=== PATIENT | female | born 1995 | race Caucasian/White ===

== ENCOUNTER 2018-07-13 22:29 | Emergency (ER) | payer MEDICAID ==
[2018-07-13 22:50] VITALS: BP 124/86; PULSE 86; RESP 18; TEMP 98.7
--- NOTE | 2018-07-13 22:53 | ED ---
ENT HPI - General Chief complaint: ENT Stated complaint: mouth pain Time Seen by Provider: 07/13/18 22:39 Source: patient, RN notes reviewed Mode of arrival: ambulatory Limitations: no limitations - History of Present Illness Initial comments: This is a 23-year-old female who presents to the emergency department with chief complaint of mouth pain. Patient states that last Friday she developed canker sores on her bottom inner lip. She states that they have spread to both gumlines, cheeks, under her tongue and at the back of her throat. She states that she has pain with swallowing and the only thing that that relieves the pain is drinking tea. She states that she's been performing saltwater gargles daily. She denies any fevers or chills, chest pain or shortness of breath, abdominal pain, nausea or vomiting, cough or runny nose. - Related Data Allergies Allergy/AdvReac Type Severity Reaction Status Date / Time No Known Allergies Allergy Verified 07/13/18 22:45 Review of Systems ROS Statement: Those systems with pertinent positive or pertinent negative responses have been documented in the HPI. ROS Other: All systems not noted in ROS Statement are negative. Past Medical History Past Medical History: No Reported History History of Any Multi-Drug Resistant Organisms: None Reported Past Surgical History: No Surgical Hx Reported Smoking Status: Never smoker Past Alcohol Use History: Occasional Past Drug Use History: None Reported General Exam - General Exam Comments Initial Comments: General: Awake and alert, well-developed; in no apparent distress. HEENT: Head atraumatic, normocephalic. Pupils are equal, round and reactive to light. Extraocular movements intact. Oropharynx moist with mild erythema. Vesicular and white ulcer-like lesions upper and lower gumlines, inferior surface of tongue, bilateral cheeks and posterior oropharynx. No tonsillar enlargement or exudates. Neck: Supple. Normal ROM. Cardiovascular: Regular rate and rhythm. No murmurs, rubs or gallops. Chest symmetrical. Respiratory: Lungs clear to auscultation bilaterally. No wheezes, rales or rhonchi. Normal respiratory effort with no use of accessory muscles. Musculoskeletal: Normal ROM, no tenderness bilateral upper and lower extremities. Ambulating normally. Skin: Halma, warm and dry without rashes or lesions. Neurological: Alert and oriented x3. CN II-XII grossly intact. Speech is fluent and answers are appropriate. No focal neuro deficits. Psychiatric: Normal mood and affect. No overt signs of depression or anxiety noted. Limitations: no limitations Course Vital Signs 07/13/18 22:39 Temperature 98.7 F Pulse Rate 86 Respiratory 18 Rate Blood Pressure 124/86 O2 Sat by Pulse 100 Oximetry Medical Decision Making - Medical Decision Making This is a 23-year-old female who presents to the emergency department with chief complaint of mouth pain. Patient reports oral lesions that have been present since last Friday. On physical examination, patient has diffuse oral vesicular and ulcer-like lesions. I educated patient that these are likely viral in nature and are usually caused by the herpes virus. Patient denies any fevers. Her vital signs are stable and she is in acute distress. She will be discharged home with a prescription for magic mouthwash to be used as needed for pain. She is in agreement and voices understanding. All questions answered. Disposition Clinical Impression: Gingivostomatitis Disposition: HOME SELF-CARE Condition: Good Instructions: Gingivostomatitis (ED) Additional Instructions: Please take medications as prescribed. Please follow up with primary care provider within 1-2 days. Return to emergency department if symptoms should worsen or any concerns arise. Is patient prescribed a controlled substance at d/c from ED?: No Referrals: Jens Pizano MD [Primary Care Provider] - 1-2 days Time of Disposition: 22:53
== END 2018-07-13 23:03 | disposition home or self-care (01) ==
LOC: EC 22:29
DX: K05.10 Chronic gingivitis, plaque induced (principal)
CPT/HCPCS: 99282

== ENCOUNTER 2018-08-13 20:44 | Emergency (ER) | payer MEDICAID ==
--- NOTE | 2018-08-13 21:45 | ED ---
General Adult HPI - General Chief complaint: Extremity Problem,Nontraumatic Stated complaint: swollen ankles/skin problems Source: patient, family Limitations: no limitations - History of Present Illness Initial comments: Dictation was produced using [employer] dictation software. please excuse any grammatical, word or spelling errors. Chief Complaint: 32-year-old female no significant past medical history presents with bilateral extremity swelling and bilateral lower extremity rash. History of Present Illness: 23-year-old female presents with bilateral lower extremity painful rash. Patient states that her symptoms have been ongoing just today. She tried to schedule point with her primary care physician however was unavailable. Patient denies any medical problems. She only has a NuvaRing. No daily medications. Patient states that she's had several weeks of lower extremity swelling. This morning she woke up with some tender red areas over the anterior tibial area. Patient denies any other complaints at this time. Denies any recent travel. The ROS documented in this emergency department record has been reviewed and confirmed by me. Those systems with pertinent positive or negative responses have been documented in the HPI. All other systems are other negative and/or noncontributory. - Related Data Home Medications Medication Instructions Recorded Confirmed Ascorbic Acid [Vitamin C] 1,000 mg PO DAILY 08/13/18 08/13/18 Etonogestrel/Ethinyl Estradiol 1 unit VAGINAL Q21D 08/13/18 08/13/18 [Nuvaring Vaginal Ring] Allergies Allergy/AdvReac Type Severity Reaction Status Date / Time No Known Allergies Allergy Verified 08/13/18 21:28 Review of Systems ROS Statement: Those systems with pertinent positive or pertinent negative responses have been documented in the HPI. ROS Other: All systems not noted in ROS Statement are negative. Past Medical History Past Medical History: No Reported History History of Any Multi-Drug Resistant Organisms: None Reported Past Surgical History: No Surgical Hx Reported Past Psychological History: No Psychological Hx Reported Smoking Status: Never smoker Past Alcohol Use History: Occasional Past Drug Use History: None Reported General Exam - General Exam Comments Initial Comments: PHYSICAL EXAM: General Impression: Alert and oriented x3, not in acute distress HEENT: Normocephalic atraumatic, extra-ocular movements intact, pupils equal and reactive to light bilaterally, mucous membranes moist. Cardiovascular: Heart regular rate and rhythm, S1&S2 audible, no murmurs, rubs or gallops Chest: Lungs clear to auscultation bilaterally, no rhonchi, no wheeze, no rales Abdomen: Bowel sounds present, abdomen soft, non-tender, non-distended, no organomegaly Musculoskeletal: Pulses present and equal in all extremities, no peripheral edema Motor: Power 5/5 bilaterally, no focal deficits noted Neurological: CN II-XII grossly intact, no focal motor or sensory deficits noted Skin: Slightly erythematous 2 x 2 centimeter rashes over the anterior tibia with slight tenderness to palpation bilaterally. Lesions are slightly indurated. Psych: Normal affect and mood Limitations: no limitations Course Vital Signs 08/13/18 21:03 Temperature 98.0 F Pulse Rate 94 Respiratory 16 Rate Blood Pressure 130/72 O2 Sat by Pulse 100 Oximetry Medical Decision Making - Medical Decision Making ED course: 23-year-old feel presents with slightly tender erythematous rash to the bilateral anterior tib. Vital signs upon arrival are within acceptable limits. Clinical presentation is suspicious for erythema nodosum. Patient has no other complaints at this time. Laboratory evaluation obtained. CBC unremarkable. Comp wrens metabolic panel is negative. Urinalysis does show 19 white blood cells however 6 squamous cells. Patient is not complaining of any urinary symptoms at this time. No indication for antibiotics at this time. Patient urine is sent out for culture. Two-view chest x-ray shows no acute processes. Presentation is suspicious for erythema nodosum. At this time there is no clear cause of patient's symptoms. Patient has no complaints and labs and basic imaging does not show any findings. Patient told to follow-up with her primary care physician upon discharge. She is told to call back in 2-3 days to follow-up with urine culture and for the need of antibiotics. - Lab Data Result diagrams: 08/13/18 22:20 08/13/18 22:20 Lab Results 08/13/18 08/13/18 08/13/18 Range/Units 22:10 22:10 22:20 WBC (3.8-10.6) k/uL RBC (3.80-5.40) m/uL Hgb (11.4-16.0) gm/dL Hct (34.0-46.0) % MCV (80.0-100.0) fL MCH (25.0-35.0) pg MCHC (31.0-37.0) g/dL RDW (11.5-15.5) % Plt Count (150-450) k/uL Neutrophils % % Lymphocytes % % Monocytes % % Eosinophils % % Basophils % % Neutrophils # (1.3-7.7) k/uL Lymphocytes # (1.0-4.8) k/uL Monocytes # (0-1.0) k/uL Eosinophils # (0-0.7) k/uL Basophils # (0-0.2) k/uL Sodium 140 (137-145) mmol/L Potassium 4.0 (3.5-5.1) mmol/L Chloride 104 (98-107) mmol/L Carbon Dioxide 25 (22-30) mmol/L Anion Gap 11 mmol/L BUN 13 (7-17) mg/dL Creatinine 0.73 (0.52-1.04) mg/dL Est GFR (CKD-EPI)AfAm >90 (>60 ml/min/1.73 sqM) Est GFR (CKD-EPI)NonAf >90 (>60 ml/min/1.73 sqM) Glucose 87 (74-99) mg/dL Calcium 9.4 (8.4-10.2) mg/dL Total Bilirubin 0.3 (0.2-1.3) mg/dL AST 25 (14-36) U/L ALT 18 (9-52) U/L Alkaline Phosphatase 71 (38-126) U/L Total Protein 8.0 (6.3-8.2) g/dL Albumin 4.3 (3.5-5.0) g/dL Urine Color Yellow Urine Appearance Cloudy H (Clear) Urine pH 8.0 (5.0-8.0) Ur Specific Nelson 1.017 (1.001-1.035) Urine Protein Trace H (Negative) Urine Glucose (UA) Negative (Negative) Urine Ketones Negative (Negative) Urine Blood Negative (Negative) Urine Nitrite Negative (Negative) Urine Bilirubin Negative (Negative) Urine Urobilinogen <2.0 (<2.0) mg/dL Ur Leukocyte Esterase Small H (Negative) Urine WBC 19 H (0-5) /hpf Ur Squamous Epith Cells 6 H (0-4) /hpf Urine Mucus Rare H (None) /hpf Urine HCG, Qual Not Detected (Not Detectd) 08/13/18 Range/Units 22:20 WBC 6.1 (3.8-10.6) k/uL RBC 4.48 (3.80-5.40) m/uL Hgb 14.0 (11.4-16.0) gm/dL Hct 41.6 (34.0-46.0) % MCV 92.7 (80.0-100.0) fL MCH 31.2 (25.0-35.0) pg MCHC 33.7 (31.0-37.0) g/dL RDW 12.2 (11.5-15.5) % Plt Count 305 (150-450) k/uL Neutrophils % 51 % Lymphocytes % 37 % Monocytes % 7 % Eosinophils % 3 % Basophils % 1 % Neutrophils # 3.1 (1.3-7.7) k/uL Lymphocytes # 2.3 (1.0-4.8) k/uL Monocytes # 0.4 (0-1.0) k/uL Eosinophils # 0.2 (0-0.7) k/uL Basophils # 0.0 (0-0.2) k/uL Sodium (137-145) mmol/L Potassium (3.5-5.1) mmol/L Chloride (98-107) mmol/L Carbon Dioxide (22-30) mmol/L Anion Gap mmol/L BUN (7-17) mg/dL Creatinine (0.52-1.04) mg/dL Est GFR (CKD-EPI)AfAm (>60 ml/min/1.73 sqM) Est GFR (CKD-EPI)NonAf (>60 ml/min/1.73 sqM) Glucose (74-99) mg/dL Calcium (8.4-10.2) mg/dL Total Bilirubin (0.2-1.3) mg/dL AST (14-36) U/L ALT (9-52) U/L Alkaline Phosphatase (38-126) U/L Total Protein (6.3-8.2) g/dL Albumin (3.5-5.0) g/dL Urine Color Urine Appearance (Clear) Urine pH (5.0-8.0) Ur Specific Nelson (1.001-1.035) Urine Protein (Negative) Urine Glucose (UA) (Negative) Urine Ketones (Negative) Urine Blood (Negative) Urine Nitrite (Negative) Urine Bilirubin (Negative) Urine Urobilinogen (<2.0) mg/dL Ur Leukocyte Esterase (Negative) Urine WBC (0-5) /hpf Ur Squamous Epith Cells (0-4) /hpf Urine Mucus (None) /hpf Urine HCG, Qual (Not Detectd) Disposition Clinical Impression: Leg pain, bilateral Disposition: HOME SELF-CARE Condition: Good Instructions: Leg Pain (ED) Is patient prescribed a controlled substance at d/c from ED?: No Referrals: Jens Pizano MD [Primary Care Provider] - 1-2 days Time of Disposition: 22:57
[2018-08-13 22:36] LABS: Basophils % (A) 1 %; Eosinophils # (A) 0.2 k/uL (0-0.7); Eosinophils % (A) 3 %; HCT 41.6 % (34.0-46.0); Lymphocytes # (A) 2.3 k/uL (1.0-4.8); Lymphocytes % (A) 37 %; MCH 31.2 pg (25.0-35.0); MCHC 33.7 g/dL (31.0-37.0); MCV 92.7 fL (80.0-100.0); Mean Platelet Volume 6.7; Monocytes # (A) 0.4 k/uL (0-1.0); Monocytes % (A) 7 %; Neutrophils # (A) 3.1 k/uL (1.3-7.7); Neutrophils % (A) 51 %; Platelet Count 305 k/uL (150-450); RBC 4.48 m/uL (3.80-5.40); RDW 12.2 % (11.5-15.5); WBC 6.1 k/uL (3.8-10.6)
[2018-08-13 22:39] LABS: Appearance,Urine Cloudy (Clear); Bilirubin,Urine Negative (Negative); Blood,Urine Negative (Negative); Color,Urine Yellow; Glucose,Urine (UA) Negative (Negative); Ketones,Urine Negative (Negative); Leukocyte Esterase,Urine Small (Negative); Mucus,Urine Rare /hpf; Nitrite,Urine Negative (Negative); Protein,Urine Trace (Negative); Specific Gravity,Urine 1.017 (1.001-1.035); Squamous Epithelial Cell,Urine 6 /hpf (0-4); Urobilinogen,Urine <2.0 mg/dL (<2.0); WBC,Urine 19 /hpf (0-5)
[2018-08-13 22:44] LABS: ALT 18 U/L (9-52); AST 25 U/L (14-36); Albumin 4.3 g/dL (3.5-5.0); Alkaline Phosphatase 71 U/L (38-126); Anion Gap 11 mmol/L; Blood Urea Nitrogen 13 mg/dL (7-17); Calcium 9.4 mg/dL (8.4-10.2); Carbon Dioxide 25 mmol/L (22-30); Chloride 104 mmol/L (98-107); Glucose 87 mg/dL (74-99); Sodium 140 mmol/L (137-145); Total Bilirubin 0.3 mg/dL (0.2-1.3)
--- NOTE | 2018-08-13 22:47 | XR ---
EXAMINATION TYPE: XR chest 2V DATE OF EXAM: 08/13/2018 COMPARISON: NONE HISTORY: Lower edema TECHNIQUE: Frontal and lateral views of the chest are obtained. FINDINGS: Heart and mediastinum are normal. Lungs are clear. Diaphragm is normal. Bony thorax appear s normal. IMPRESSION: Normal chest
[2018-08-13 23:16] VITALS: BP 125/96; PULSE 82; RESP 17; TEMP 98.2
== END 2018-08-13 23:03 | disposition home or self-care (01) ==
LOC: EC 20:44
DX: M79.604 Pain in right leg (principal); M79.605 Pain in left leg; M25.471 Effusion, right ankle; M25.472 Effusion, left ankle; R21 Rash and other nonspecific skin eruption; Z97.5 Presence of (intrauterine) contraceptive device
CPT/HCPCS: 36415; 71046; 80053; 81001; 81025; 85025; 87086; 99283